=== PATIENT | male | born 2000 | race Hispanic/Latino ===

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

== ENCOUNTER 2021-03-07 22:36 | Emergency (ER) | payer OTHER ==
[2021-03-08] MEDS ORDERED: Bacitracin 1 PK ONE ×3 (00:22→00:36)
== END 2021-03-08 00:38 | disposition home or self-care (01) ==
LOC: ERS 22:36
DX: S80.01XA Contusion of right knee, initial encounter (principal); F17.210 Nicotine dependence, cigarettes, uncomplicated; W01.0XXA Fall on same level from slipping, tripping and stumbling without subsequent striking against object, initial encounter